=== PATIENT | female | born 1950 | race Caucasian/White ===

== ENCOUNTER 2016-07-15 16:44 | Inpatient (IN) | payer OTHER ==
[~2016-07-15] VITALS: Ht 162.6 cm; Wt 79.4 kg
[2016-07-15 17:55] LABS: BASOPHILS # (AUTO) 0.1 /CMM (0.0-0.2); BASOPHILS % (AUTO) 1.1 % (0.0-2.0); DIFF TOTAL % 100 %; EOSINOPHILS % (AUTO) 0.8 % (0.0-6.0); HEMATOCRIT 40 % (33-45); HEMOGLOBIN 13.1 g/dL (11.5-14.8); LYMPHOCYTES # (AUTO) 1.3 /CMM (0.8-4.8); LYMPHOCYTES % (AUTO) 26.7 % (20.0-44.0); MEAN CORPUSCULAR HEMOGLOBIN 31 PG (26.0-33.0); MEAN CORPUSCULAR HGB CONC 33 g/dl (31.0-36.0); MEAN CORPUSCULAR VOLUME 94 fL (82-100); MONOCYTES # (AUTO) 0.3 /CMM (0.1-1.30); MONOCYTES % (AUTO) 5.6 % (2.0-12.0); NEUTROPHILS # (AUTO) 3.1 /CMM (1.8-8.9); NEUTROPHILS % (AUTO) 65.8 % (43.0-81.0); PLATELET COUNT (AUTO) 130 /CMM (150-450); RED BLOOD CELL COUNT(AUTO) 4.23 MIL/uL (4.0-5.2); WHITE BLOOD COUNT (AUTO) 4.8 K/uL (4.3-11.0)
[2016-07-15] MEDS ORDERED: SERT50TA PO (17:59)
[2016-07-15] MEDS ORDERED: ESCI10TA PO (17:59)
[2016-07-15] MEDS ORDERED: TEMA30CA PO (17:59)
[2016-07-15] MEDS ORDERED: LOPE2TAB25 PO (17:59)
[2016-07-15] MEDS ORDERED: TRAZ-147 PO (17:59)
[2016-07-15] MEDS ORDERED: OLAN5TAB3 PO (17:59)
[2016-07-15] MEDS ORDERED: HYDR-551 PO (17:59)
[2016-07-15] MEDS ORDERED: PANTOPRAZOLE 40 MG VIAL IV ONE (18:00)
[2016-07-15 18:13] LABS: ANION GAP 9 (5-14); CALCIUM, SERUM 8.8 mg/dL (8.5-10.1); CARBON DIOXIDE 30 mmol/L (21-32); CHLORIDE 106 mmol/L (98-107); CREATININE 0.9 mg/dL (0.6-1.3); GFR 63 mL/min (>60); GLUCOSE 117 mg/dL (74-106); POTASSIUM 3.6 mmol/L (3.5-5.1); SODIUM SERUM 141 mmol/L (136-145); UREA NITROGEN, BLOOD 17 mg/dL (7-18)
[2016-07-15 18:16] LABS: KETONES,URINE Trace (NEGATIVE); LEUKOCYTE ESTERASE ,URINE Trace (NEGATIVE); PH,URINE 5.5 (5.0-8.0)
[2016-07-15 18:17] LABS: ADD UA MICROSCOPIC YES
[2016-07-15 18:19] LABS: ALANINE AMINOTRANSFERASE 27 U/L (12-78); ALBUMIN 3.4 g/dL (3.4-5.0); ASPARTATE AMINOTRANSFERASE 31 U/L (15-37); BILIRUBIN,DIRECT 0.1 mg/dL (0.0-0.2); BILIRUBIN,TOTAL 0.6 mg/dL (0.2-1.0); INDIRECT BILIRUBIN 0.5 mg/dL (0.0-1.1); TOTAL PROTEIN, SERUM 6.7 g/dL (6.4-8.2)
[2016-07-15 18:22] LABS: ADD URINE CULTURE NO
[2016-07-15 18:23] LABS: CANNABINOID, URINE NEGATIVE (NEGATIVE); PHENCYCLIDINE SCREEN,URINE NEGATIVE (NEGATIVE)
[2016-07-15 18:29] LABS: THYROID STIMULATING HORMONE 1.285 uIU/mL (0.358-3.74); TROPONIN I < 0.017 ng/mL (0.00-0.056)
[2016-07-15] MEDS ORDERED: ACETAMINOPHEN 325 MG TABLET PO PRN (19:00)
[2016-07-15] MEDS ORDERED: ONDANSETRON HCL/PF 4 MG/2 ML VIAL IVP PRN (19:00)
[2016-07-15] MEDS ORDERED: HYDROCODONE/APAP 5/325MG 1 EACH TABLET PO ONE (19:00)
[2016-07-15] MEDS ORDERED: MAG HYDROX/AL HYDROX/SIMETH 30 ML UDC PO PRN (19:00)
[2016-07-15] MEDS ORDERED: MAGNESIUM HYDROXIDE 30 ML UDC PO PRN (19:00)
[2016-07-15 20:00] VITALS: BP 146/82
[2016-07-15] MEDS: HYDROCODONE/APAP 5/325MG 1 EACH TABLET PO PRN (21:26)
[2016-07-15] MEDS: TEMAZEPAM 15 MG CAPSULE PO PRN (22:54)
[2016-07-16] MEDS ORDERED: Z GUARD REMEDY 2 OZ OINT TP PRN (01:30)
[2016-07-16 08:00] VITALS: BP 121/63
[2016-07-16] MEDS: PANTOPRAZOLE 40 MG TABLET.DR PO SCH (08:04)
[2016-07-16 10:46] LABS: PHOSPHORUS 3.3 mg/dL (2.5-4.9)
[2016-07-16] MEDS: MAGNESIUM OXIDE 400 MG TABLET PO SCH (12:32)
[2016-07-16 16:52] VITALS: BP 115/68
[2016-07-16] MEDS: SERTRALINE HCL 50 MG TABLET PO SCH (16:56)
[2016-07-16] MEDS: HYDROCODONE/APAP 5/325MG 1 EACH TABLET PO PRN (16:56)
[2016-07-16 20:20] VITALS: BP 112/57
[2016-07-16] MEDS: TEMAZEPAM 15 MG CAPSULE PO PRN (20:40)
[2016-07-16] MEDS: OLANZAPINE 5 MG TABLET PO SCH (20:40)
[2016-07-16] MEDS: TRAZODONE 50 MG TABLET PO SCH (20:40)
[2016-07-17 08:00] VITALS: BP 123/56
[2016-07-17 08:24] LABS: CALCIUM, SERUM 9.1 mg/dL (8.5-10.1); CREATININE 0.8 mg/dL (0.6-1.3); POTASSIUM 4.2 mmol/L (3.5-5.1)
[2016-07-17] MEDS: SERTRALINE HCL 50 MG TABLET PO SCH (08:32)
[2016-07-17] MEDS: PANTOPRAZOLE 40 MG TABLET.DR PO SCH (08:32)
[2016-07-17] MEDS: HYDROCODONE/APAP 5/325MG 1 EACH TABLET PO PRN ×3 (08:32→21:04)
[2016-07-17] MEDS: MAGNESIUM OXIDE 400 MG TABLET PO SCH (08:32)
[2016-07-17 16:11] VITALS: BP 117/60
[2016-07-17 20:00] VITALS: BP 108/67
[2016-07-17] MEDS: OLANZAPINE 5 MG TABLET PO SCH (21:54)
[2016-07-17] MEDS: TRAZODONE 50 MG TABLET PO SCH (21:54)
[2016-07-17] MEDS: TEMAZEPAM 15 MG CAPSULE PO PRN (21:55)
[2016-07-18] MEDS: HYDROCODONE/APAP 5/325MG 1 EACH TABLET PO PRN ×3 (05:37→20:40)
[2016-07-18 08:00] VITALS: BP 104/68
[2016-07-18] MEDS: PANTOPRAZOLE 40 MG TABLET.DR PO SCH (08:24)
[2016-07-18] MEDS: MAGNESIUM OXIDE 400 MG TABLET PO SCH (08:24)
[2016-07-18] MEDS: SERTRALINE HCL 50 MG TABLET PO SCH (08:24)
[2016-07-18 16:00] VITALS: BP 127/75
[2016-07-18 20:00] VITALS: BP 113/71
[2016-07-18] MEDS: TRAZODONE 50 MG TABLET PO SCH (21:47)
[2016-07-18] MEDS: TEMAZEPAM 15 MG CAPSULE PO PRN (21:47)
[2016-07-18] MEDS: OLANZAPINE 5 MG TABLET PO SCH (21:47)
[2016-07-19] MEDS: HYDROCODONE/APAP 5/325MG 1 EACH TABLET PO PRN ×3 (02:49→16:28)
[2016-07-19 08:00] VITALS: BP 119/62
[2016-07-19] MEDS: PANTOPRAZOLE 40 MG TABLET.DR PO SCH (08:20)
[2016-07-19] MEDS: SERTRALINE HCL 50 MG TABLET PO SCH (08:20)
[2016-07-19] MEDS: MAGNESIUM OXIDE 400 MG TABLET PO SCH (08:20)
[2016-07-19 20:00] VITALS: BP 116/52
[2016-07-19] MEDS: TRAZODONE 50 MG TABLET PO SCH (22:23)
[2016-07-19] MEDS: OLANZAPINE 5 MG TABLET PO SCH (22:24)
[2016-07-19] MEDS: TEMAZEPAM 15 MG CAPSULE PO PRN (22:24)
[2016-07-20] MEDS: HYDROCODONE/APAP 5/325MG 1 EACH TABLET PO PRN ×4 (00:05→18:47)
[2016-07-20 07:45] VITALS: BP 115/59
[2016-07-20] MEDS: SERTRALINE HCL 50 MG TABLET PO SCH (08:18)
[2016-07-20] MEDS: PANTOPRAZOLE 40 MG TABLET.DR PO SCH (08:18)
[2016-07-20] MEDS: MAGNESIUM OXIDE 400 MG TABLET PO SCH (08:19)
[2016-07-20 15:56] VITALS: BP 121/60
[2016-07-20 19:48] VITALS: BP 117/60
[2016-07-20] MEDS: OLANZAPINE 5 MG TABLET PO SCH (21:27)
[2016-07-20] MEDS: TRAZODONE 50 MG TABLET PO SCH (21:27)
[2016-07-20] MEDS: TEMAZEPAM 15 MG CAPSULE PO PRN (22:12)
[2016-07-21] MEDS: HYDROCODONE/APAP 5/325MG 1 EACH TABLET PO PRN ×3 (00:16→14:08)
[2016-07-21 08:00] VITALS: BP 108/58
[2016-07-21] MEDS: PANTOPRAZOLE 40 MG TABLET.DR PO SCH (10:31)
[2016-07-21] MEDS: SERTRALINE HCL 50 MG TABLET PO SCH (10:31)
[2016-07-21] MEDS: MAGNESIUM OXIDE 400 MG TABLET PO SCH (10:32)
[2016-07-21 16:00] VITALS: BP 106/64
== END 2016-07-21 17:20 | DRG 885 ==
LOC: ER 16:50 → GPS 19:16
PROVIDERS: ADMIT Psychiatry & Neurology Psychiatry; ATTEND Nurse Practitioner Acute Care
DX: F32.3 Major depressive disorder, single episode, severe with psychotic features (principal); F29 Unspecified psychosis not due to a substance or known physiological condition; D69.6 Thrombocytopenia, unspecified; G47.00 Insomnia, unspecified; Z86.73 Personal history of transient ischemic attack (TIA), and cerebral infarction without residual deficits; Z85.43 Personal history of malignant neoplasm of ovary; Z90.710 Acquired absence of both cervix and uterus; Z90.722 Acquired absence of ovaries, bilateral; Z95.0 Presence of cardiac pacemaker; I25.10 Atherosclerotic heart disease of native coronary artery without angina pectoris; G89.4 Chronic pain syndrome; F32.9 Major depressive disorder, single episode, unspecified
CPT/HCPCS: 36415; 80048-TC; 80061-TC; 80076-TC; 80305; 81000-TC; 83690-TC; 83735-TC; 84100-TC; 84443-TC; 84484-TC; 85025-TC; 87081-TC; A4606; G0480; Z7610